=== PATIENT | female | born 1970 | race Caucasian/White ===

== ENCOUNTER 2017-11-24 08:44 | Inpatient (IN) | payer BC, OTHER ==
[2017-11-13 15:59] VITALS: BMI 43.0
--- NOTE | 2017-11-23 14:32 | History and Physical ---
History & Physical Date Nov 23, 2017. Chief Complaint Right ankle/foot pain History of Present Illness The patient is a 47 year old female with complaints of right hindfoot pain that has worsened over the past couple of months. She was treated conservatively with booting and PT but failed all conservative management. She had an MRI that noted PTT tenosynovitis and sinus tarsi syndrome. She is now being set up for surgical tx. Past Medical/Surgical History Medical Problems: (1) Abdominal hysterectomy (2) Asthma (3) Deliveries by (4) Heart murmur (5) Lumpectomy of breast (6) Pneumonia Past surgical hx: , cholecystectomy, hysterectomy, knee, wrist, shoulder, tonsillectomy, endometriosis Allergies Coded Allergies: Ondansetron (Verified Allergy, Severe, ITCHY, REDNESS, ARM SWELLING, ) Aspirin (Verified Allergy, Mild, rash, 11/13/17) TOLERATES ASPIRIN/NSAIDS Caffeine (Verified Allergy, Mild, rash, 11/13/17) Cinnamedrine (Verified Allergy, Mild, rash, 11/13/17) Corticosteroids (Unverified Adverse Reaction, Unknown, FLUSHING, 11/13/17) Home Medications Scheduled Fexofenadine Hcl (Ariana Allergy), 180 MG PO QAM Liraglutide (Victoza), 18 MG SQ QAM Montelukast Sodium (Singulair), 10 MG PO QAM [Allergy Shots], 2 DOSE SQ MONTHLY Scheduled PRN Acetaminophen/Codeine (Tylenol W/Codeine #3), 1 TAB PO Q6H PRN for Pain Physical Examination Skin: warm/dry, no rash Eyes: normal inspection ENT: normal ENT inspection Head: normocephalic, atraumatic Neck: supple, no adenopathy, trachea midline Respiratory/Chest: lungs clear, normal breath sounds, no respiratory distress Cardiovascular: regular rate, rhythm Abdomen / GI: normal bowel sounds, non tender Extremities: + pertinent finding (Right ankle: pes planovalgus. Tender along the PTT and the sinus tarsi. Weak inversion right ankle. ) Neurologic/Psych: no motor/sensory deficits, alert, oriented x 3 Diagnosis Right posterior tibial tendon dysfunction right pes planovalgus deformity Plan of Treatment Recommend a right posterior tibial tendon reconstruction with flexor digitorum longus tendon transfer, medializing calcaneal osteotomy, lateral column lengthening with autograft, Right iliac crest bone graft harvest. All potential risks, benefits, complications, alternatives, and rehab have been discussed with the patient and she wishes to proceed. She will be scheduled for 3.2 with ASA 81 mg BID x 4-6 wks for DVT prophylaxis.
[2017-11-24] VITALS (7 sets, daily range): BP systolic 123–148; BP diastolic 69–99; PULSE 83–103; TEMP 36.4–36.9; O2SAT 94–100; Ht 157.5 cm; Wt 108.2 kg
[~2017-11-24] VITALS: Ht 157.5 cm; Wt 108.2 kg
[~2017-11-24 08:44] MED LIST: ACET-749 PO; ALLERGY SHOTS SQ; BUPIVACAINE 0.25% 30 ML VIAL ONE; CEFAZOLIN 2000MG IV PUSH 15 ML IV SCH; DEXAMETHASONE SOD INJ 4 MG/ML VIAL ONE; EpINEphrine INJ 1MG/ML AMP 1 MG/ML AMP ONE; FEXO1TAB49 PO; LIRA18IN SQ; MONT1TAB3 PO; SCOPOLAMINE 1.5 MG TDSY TD SCH
[2017-11-24] MEDS ORDERED: BACITRACIN 50000 UNIT VIAL ONE (09:25)
[2017-11-24] MEDS ORDERED: BUPIVACAINE 0.5 % 5 MG/1 ML MPF 30ML VIAL ONE (09:25)
[2017-11-24] MEDS ORDERED: BUPIVACAINE/EPINEPHRINE 0.5% MPF 1:200,000 30 ML VIAL ONE (09:25)
[2017-11-24] MEDS ORDERED: THROMBIN FOR SOLN 20000 UNIT KIT ONE (09:26)
[2017-11-24] MEDS ORDERED: GELATIN SPONGE SZ 100 ONE (09:26)
[2017-11-24 09:29] LABS: HEMATOCRIT 41.5 % (37-47); HEMOGLOBIN 14.4 g/dL (12.0-16.0); MEAN CELL VOLUME 88.7 fL (80-100); MEAN CORPUSCULAR HEMOGLOBIN 30.8 pg (25-34); MEAN PLATELET VOLUME 9.3 fL (7.4-10.4); PLATELET COUNT 238 K/uL (130-400); RED CELL DISTRIBUTION WIDTH CV 13.8 % (11.5-14.5); RED CELL DISTRIBUTION WIDTH SD 44.8 fL (36.4-46.3); WHITE BLOOD COUNT 8.17 K/uL (4.8-10.8)
[2017-11-24 09:35] LABS: MEAN CORPUSCULAR HGB CONC 34.7 g/dl (32-36)
[2017-11-24 09:38] LABS: PTT PATIENT 26.4 SECONDS (21.0-31.0)
[2017-11-24 09:50] LABS: CALCIUM 9.3 mg/dl (8.5-10.1); CREATININE 0.84 mg/dl (0.60-1.20)
[2017-11-24] MEDS ORDERED: MIDAZOLAM HCL 1 MG/ML 2ML VIAL ONE (10:49)
[2017-11-24] MEDS ORDERED: FENTANYL CITRATE INJ 50 MCG/1 ML 2 ML VIAL ONE ×2 (10:49→13:34)
--- NOTE | 2017-11-24 11:15 | History & Physical Bridge Note ---
H&P Re-Evaluation Bridge Note: I have examined the patient, reviewed the History & Physical and in the interval since the performance of the History & Physical I have noted the following changes of clinical significance: No changes noted
[2017-11-24] MEDS ORDERED: BUPIVACAINE 0.25% 30 ML VIAL ONE (11:27)
[2017-11-24] MEDS ORDERED: MoRPHine SULFATE 2 MG/ML CARP ONE (12:03)
[2017-11-24] MEDS ORDERED: MoRPHine SULFATE PF 1 MG/ML 10 ML AMP/VIAL ONE (12:05)
[2017-11-24] MEDS ORDERED: FENTANYL CITRATE INJ 50 MCG/1 ML 2 ML VIAL IV PRN (12:30)
[2017-11-24] MEDS ORDERED: PROMETHAZINE HCL INJ 6.25 MG in SODIUM CHLORIDE 0.9% 50ML 50 ML IV PRN (12:30)
[2017-11-24] MEDS ORDERED: ATROPINE SULFATE 0.1 MG/ML 5ML SYR IV PRN (12:30)
[2017-11-24] MEDS ORDERED: EpHEDrine SULFATE INJ 50 MG/ML AMP IV PRN (12:30)
[2017-11-24] MEDS ORDERED: LABETALOL HCL IV 5 MG/ML 20ML IV ONE (13:56)
--- NOTE | 2017-11-24 13:56 | DIAGNOSTIC IMAGING REPORT ---
INTRAOPERATIVE RIGHT FOOT 2 VIEWS CLINICAL HISTORY: Right hindfoot reconstruction COMPARISON STUDY: No previous studies for comparison. FINDINGS: 2 intraoperative fluoroscopic spot images are provided for interpretation. 50 seconds of fluoroscopic time was utilized. There is a cannulated calcaneal screw and talo calcaneal screw present. IMPRESSION: Intraoperative radiograph demonstrating 2 hindfoot screws. Electronically signed by: Baron Minor M.D. 11/24/2017 1:54 PM Dictated Date/Time: 11/24/2017 1:53 PM
--- NOTE | 2017-11-24 14:40 | [facility] Post Operative Brief Note ---
Immediate Operative Summary Operative Date Nov 24, 2017. Pre-Operative Diagnosis Right posterior tibial tendon dysfunction, Right pes planovalgus deformity, Achilles Contracture Post-Operative Diagnosis Right posterior tibial tendon dysfunction, Right pes planovalgus deformity, Achilles Contracture Procedure(s) Performed 1. Right Foot Posterior Tibial Tendon Reconstruction with Flexor Digitorum Longus Transfer 2. Medializing Calcaneal Osteotomy, 3. Lateral Column Lengthening with Autograft, 4. Percutaneous Tendoachilles lengthening 5. [place] Autologous Right Iliac Crest Bone Graft Surgeon Dr. Merlin Isaac Umbrella Tipper Machine Surgeon(s) Juan Sinha PA-C Estimated Blood Loss 25ml Findings Consistent with Post-Op Diagnosis Specimens None per surgeon Drains HV x 1 Anesthesia Type General Regional Complication(s) none Disposition Accompanied Pt To Recover: no Disposition: Recovery Room / PACU
[2017-11-24] MEDS ORDERED: DEXAMETHASONE SOD INJ 4 MG/ML VIAL ONE (15:03)
[2017-11-24] MEDS ORDERED: LIDOCAINE HCL 2% 2 ML VIAL (20MG/ML) ONE (15:03)
[2017-11-24] MEDS ORDERED: PROPOFOL IV EMULSION 10 MG/ML 20 ML VIAL IV ONE (15:03)
[2017-11-24] MEDS ORDERED: NURSING VERBAL MED ORDER ONE ×3 (15:15→22:45)
[2017-11-24] MEDS ORDERED: MEPERIDINE HCL 25 MG/ML CARP ONE (15:15)
[2017-11-24] MEDS ORDERED: DiphenhydrAMINE HCL 50 MG/ML VIAL ONE (15:15)
[2017-11-24] MEDS ORDERED: MAGNESIUM HYDROXIDE SUSP 30 ML UDC PO PRN (15:15)
[2017-11-24] MEDS ORDERED: ALUMINUM/MAGNESIUM/SIMETH (MAALOX MAX) 30 ML UDC PO PRN (15:15)
[2017-11-24] MEDS ORDERED: BISACODYL 10 MG SUPP PR PRN (15:15)
--- NOTE | 2017-11-24 15:35 | Anesthesiology Progress Note ---
Anesthesia Post Op Note Date & Time Nov 24, 2017 at 15:35 Vital Signs Pain Intensity: 0 Vital Signs Past 12 Hours Date Time Temp Pulse Resp B/P (MAP) Pulse Ox O2 Delivery O2 Flow Rate FiO2 11/24/17 09:28 36.6 94 20 138/99 (112) 100 Room Air Notes Mental Status: alert / awake / arousable, participated in evaluation Pt Amnestic to Procedure: Yes Nausea / Vomiting: adequately controlled Pain: adequately controlled Airway Patency, RR, SpO2: stable & adequate BP & HR: stable & adequate Hydration State: stable & adequate Anesthetic Complications: no major complications apparent
[2017-11-24] MEDS: CHECK SCOPOLAMINE PATCH PLACEMENT SCH (16:35)
[2017-11-24] MEDS: OXYCODONE HCL IR 5 MG TAB (IMMEDIATE RELEASE) PO PRN (17:29)
[2017-11-24] MEDS: MoRPHine SULFATE 4 MG/ML 1 ML CARP\\VIAL IV PRN (18:25)
[2017-11-24] MEDS: POTASSIUM CHLORIDE INJ 10 MEQ in SODIUM CHLORIDE 0.9% 1000ML 1,000 ML IV SCH (18:43)
[2017-11-24] MEDS: CEFAZOLIN IV 2,000 MG in SYRINGE 0 ML IV SCH (20:07)
[2017-11-24] MEDS: ACETAMINOPHEN 500 MG TAB PO SCH (21:32)
[2017-11-25] VITALS (7 sets, daily range): BP systolic 117–146; BP diastolic 69–86; PULSE 76–94; TEMP 36.6–36.8; O2SAT 95–99
[2017-11-25] MEDS: CHECK SCOPOLAMINE PATCH PLACEMENT SCH ×4 (00:17→23:43)
[2017-11-25] MEDS: OXYCODONE HCL IR 5 MG TAB (IMMEDIATE RELEASE) PO PRN ×3 (00:27→14:22)
[2017-11-25] MEDS: POTASSIUM CHLORIDE INJ 10 MEQ in SODIUM CHLORIDE 0.9% 1000ML 1,000 ML IV SCH ×3 (04:19→23:46)
[2017-11-25] MEDS: CEFAZOLIN IV 2,000 MG in SYRINGE 0 ML IV SCH (04:26)
[2017-11-25] MEDS: ACETAMINOPHEN 500 MG TAB PO SCH ×3 (05:47→22:26)
--- NOTE | 2017-11-25 06:55 | OPERATIVE REPORT ---
DATE OF OPERATION: 11/24/2017 PREOPERATIVE DIAGNOSES: 1. Right posterior tibial tendon dysfunction grade 2. 2. Painful pes planovalgus deformity. 3. Achilles contracture. 4. Subfibular impingement. POSTOPERATIVE DIAGNOSES: Same. PROCEDURES: 1. Right foot posterior tibial tendon reconstruction with flexor digitorum longus tendon transfer. 2. Medializing calcaneal osteotomy with screw fixation. 3. Lateral column lengthening procedure with application autograft and screw fixation. 4. Percutaneous tendon Achilles lengthening. 5. Right iliac crest autologous bone graft harvesting. SURGEON: Dr. Mrelin Isaac. LOCKSTITCH POCKET SETTER: SHWETHA Becerra, who was present for patient positioning, sterile prep and drape, management of retractors and instruments. He was present through the critical portions of the case including wound closure, application of sterile dressing and transport of the patient to recovery. ANESTHESIA: General LMA with popliteal block. SPECIMENS: None. DRAINS: Hemovac x1. COMPLICATIONS: None. BLOOD LOSS: 25 mL PERTINENT HISTORY: This is a 47-year-old who had persistent ongoing deformity of her right foot over the last 6 months to a year. She attempted and failed conservative management including physical therapy, physician-directed home exercises, anti-inflammatories, rest, shoe wear modification, use of a brace and modification of lifestyle. The patient had radiographs and MRI, which demonstrated insufficiency of her posterior tibial tendon with thickening tenosynovitis, worsening pes planovalgus deformity. Clinically, she had too many toes sign with Achilles contracture and worsening pes planovalgus deformity with abduction of the forefoot and subfibular impingement. The patient was then scheduled for surgery as indicated. All potential risks, benefits, complications, alternatives, rehab, potential for incomplete relief of symptoms, need for further surgery, DVT, PE, , persistent pain, swelling, scarring, weakness, neurovascular injury, wound complications, hardware failure, nonunion, malunion, and bone fracture discussed with the patient. The patient decided to proceed with the procedure as indicated. DESCRIPTION OF PROCEDURE: The patient was taken to the operative suite. The consent was reviewed and surgical site was identified. The patient had undergone a general LMA with popliteal block anesthetic and then transferred to the Operating Room table. Tourniquet was placed high in the right thigh over cast padding. Right iliac crest and right lower extremity were then sterilely prepped and draped in usual fashion. The right lower extremity was then elevated and exsanguinated with Esmarch bandage, tourniquet inflated to 350 mmHg. Next, right foot was held in dorsiflexion. An 11-blade scalpel was used to perform a three part percutaneous tendo Achilles lengthening and then the small stab incisions were then closed with a skin stapler. Next, a 15-blade scalpel was used to make an incision in oblique fashion on the lateral aspect of the right calcaneus. The incision was deepened to subcutaneous tissue. Meticulous hemostasis with electrocautery. Full thickness flaps were developed. Next, periosteum was elevated with small periosteal elevator. Hohmann retractors were placed and a sagittal saw was used to perform the osteotomy in the posterior aspect of the calcaneus. Tuberosity was then shifted medially and then stabilized with a guide pin from the 7.3-mm cannulated screw set under fluoroscopic control. Next, a short thread 7.3-mm cannulated screw of appropriate length was then placed over the guide pin and then used to compress the osteotomy under fluoroscopic control. Next, the guide pin was removed. The wound was irrigated with sterile Normal Saline and the dermis was closed using buried 3-0 Vicryl sutures and the skin was closed using 4-0 Nylon. Next, a 15-blade scalpel incision was made over the anterior process of the calcaneus and lateral calcaneus, the incision deepened through subcutaneous tissue, meticulous hemostasis with electrocautery. The extensor digitorum brevis was identified, incised and then elevated both superiorly and inferiorly. Peroneal tendon sheath was elevated and Hohmann retractors were placed in the sinus tarsi and then the inferior aspect of the calcaneus. A sagittal saw was used to make an osteotomy approximately 1.5 cm proximal to the calcaneal cuboid joint. Smooth osteotomes were placed into the osteotomies to open the osteotomy site and then a cervical lamina linotype worker was placed in the opening. The opening of appropriate width was then measured and the cervical lamina linotype worker was then removed from the osteotomy and a moist lap was placed over the foot. Next, after injection of the right iliac crest with approximately 15 cc of 0.5% Marcaine with Epinephrine a 15-blade scalpel incision was made over the iliac crest approximately 1 cm proximal to the ASIS. This was deepened to subcutaneous tissue with electrocautery down to the level of the fascia. Fascia was incised in line with the skin incision and then the iliac crest was clearly visualized, soft tissue and fascia was elevated medially and laterally. Small Saucedo retractors were placed in the inner and outer table of the iliac crest. It was irrigated with sterile Normal Saline. Appropriate length of bone wedge was measured and marked with electrocautery and then a sagittal saw was used to resect the appropriate width trapezoidal tricortical graft from the pelvis. Next, after irrigation and suction the graft was then placed on the back table and a small amount of cancellous graft was excised from the iliac crest. The wound was then finally irrigated with Sterile Normal Saline. The defect in the iliac crest was then packed with Gelfoam and Thrombin. This was then closed with the fascia overlying the iliac crest with #1 Vicryl sutures. Next, this was injected with 1 cc of Duramorph and 5 cc of 0.5% Marcaine with Epinephrine. The dermis was closed using buried interrupted 2-0 Vicryl sutures and the skin was closed using skin lucho. Approximately 5 more cc of 0.5% Marcaine with Epinephrine was injected. No oozing or bleeding was encountered and a sterile compressive dry dressing was applied overwrapped with an OpSite. Next, the graft was then placed in the lateral osteotomy of the foot to lengthen the lateral column using a cervical lamina linotype worker to span the osteotomy. After the graft was tamped in place with a bone tamp and mallet the cervical lamina linotype worker was removed. Next, the adjacent bone graft obtained from the iliac crest was then packed around the tricortical graft and then the graft was then stabilized with a single fully threaded 4.0 mm small fragment screw placed under lag technique compressing the graft in place. Next, the 2-0 Vicryl suture was used to close the extensor digitorum brevis and the dermis was closed using buried interrupted 3-0 Vicryl. Skin was closed using 4-0 Nylon sutures. Next, a 15-blade scalpel was used to make a long curvilinear incision along the medial aspect of the hind foot overlying the posterior tibial tendon. The incision was deepened to subcutaneous tissue. Meticulous hemostasis achieved with electrocautery. The incision was extended to the first metatarsal head. Next, after incision of the laciniate ligament the flexor retinaculum was encountered. This was incised in line with skin incision overlying the posterior tibial tendon. The posterior tibial tendon was clearly visualized. Tenotomy scissors were then used to complete the release of the flexor retinaculum and the posterior tibial tendon was then elevated sharply with combination of electrocautery and 15-blade scalpel from its insertion on the navicular. The damaged portion of the tendon distally was then resected and then a whip stitch was placed with 0 Ethibond suture in the distal aspect of the posterior tibial tendon. Next, dissection was continued in the mid foot in the interval between the first metatarsal and the abductor hallucis. A Weitlaner retractor was placed in the wound and then after careful dissection the master knot of Surjit was released and the flexor digitorum longus and flexor hallucis longus were clearly visualized distally. Tenodesis was performed with interrupted 0 Ethibond suture with toes held in neutral alignment in line with the metatarsals. Next, a whip stitch was placed in the distal aspect of the FDL tendon and then the FDL was then released distally to allow it to be retracted proximally posterior to the medial malleolus after a small cut was made in the FDL sheath posterior to the medial malleolus. After the tendon was withdrawn posteriorly, the soft tissues were elevated from the medial navicular and a 4.5-mm drill hole was made in the medial navicular. A Hartley suture passer was used to transfer the tendon from the plantar to the dorsal aspect of the navicular. It was then sutured back down to itself using a sharp tendon passer and a Pulvertaft weave technique with #2 fiber wire suture. Several passes were made and then this was then incorporated into the posterior tibial tendon. Next, free needle was used to tie the ends of the posterior tibial tendon and FDL tendon into the adjacent tendons. Sutures were then tied and cut. The wound was irrigated with Sterile Normal Saline. Deep drain was placed, a #10 [place] single Hemovac drain medially and then the flexor sheath was closed using interrupted 2-0 Vicryl sutures. The interval between the first metatarsal and the abductors were closed using interrupted 2-0 Vicryl sutures. The dermis was closed using buried interrupted 3-0 Vicryl suture and skin closed with 4-0 Nylon. A sterile compressive Solo Morales plaster splint was applied and wrapped with an Tino wrap with the foot held in slight equinus and inversion. The tourniquet was released, patient awakened and taken to recovery in stable condition. I attest to the content of the Intraoperative Record and any orders documented therein. Any exceptions are noted below. CHRIST
[2017-11-25 07:55] LABS: CALCIUM 8.6 mg/dl (8.5-10.1); CREATININE 0.79 mg/dl (0.60-1.20)
[2017-11-25] MEDS: LIRAGLUTIDE 18 MG/3 ML INJ SC SCH (09:21)
[2017-11-25] MEDS: MONTELUKAST SOD 10 MG TAB PO SCH (09:21)
[2017-11-25] MEDS: MULTIVITAMIN TAB PO SCH (09:21)
[2017-11-25] MEDS: FEXOFENADINE HCL 180 MG TAB PO SCH (09:21)
--- NOTE | 2017-11-25 11:41 | Orthopedic Progress Note ---
Orthopedic Progress Note Date of Service Nov 25, 2017. Subjective Post OP Day: 1 Reports: feeling well, Denies: chest pain, SOB, nausea / vomiting, light headedness, calf pain Additional Notes: Patient states she has some hip pain. Also she has some numbness in her foot. Objective calves soft nontender, N/V intact (numbness in her foot), capillary refill less than 2 sec., dressing C/D/I, A&O x3, hemovac drainage Date Time Temp Pulse Resp B/P (MAP) Pulse Ox O2 Delivery O2 Flow Rate FiO2 11/25/17 07:45 Room Air 11/25/17 07:40 36.6 76 18 144/73 (96) 95 Room Air 11/25/17 02:47 36.6 76 14 117/76 (90) 95 Room Air 11/25/17 00:00 Room Air 11/24/17 23:11 36.9 83 14 123/79 (94) 95 Room Air 11/24/17 19:35 36.6 97 18 123/74 (90) 94 Room Air 11/24/17 18:45 36.6 103 19 127/69 (88) 98 Room Air Nasal Cannula 11/24/17 18:08 36.6 97 16 143/89 (107) 99 Room Air Nasal Cannula 11/24/17 17:05 36.4 93 18 142/83 (102) 100 Nasal Cannula 2.0 11/24/17 17:02 Nasal Cannula 2.0 11/24/17 16:52 Nasal Cannula 2.0 11/24/17 16:35 36.7 92 16 148/89 (108) 96 Nasal Cannula 11/24/17 16:35 Nasal Cannula 2.0 11/24/17 16:15 95 14 138/86 97 Nasal Cannula 2 11/24/17 16:05 36.6 95 16 143/86 98 Nasal Cannula 2 11/24/17 15:55 88 20 151/85 94 Nasal Cannula 2 11/24/17 15:45 84 15 140/93 94 Nasal Cannula 2 11/24/17 15:35 88 19 143/93 98 Nasal Cannula 2 11/24/17 15:25 90 17 147/98 99 Oxymask 10 11/24/17 15:15 104 25 166/99 100 Oxymask 10 11/24/17 15:06 36.7 101 16 150/101 98 Oxymask 10 Assessment & Plan Assessment: POD#1 1. Right foot posterior tibial tendon reconstruction with flexor digitorum longus tendon transfer. 2. Medializing calcaneal osteotomy with screw fixation. 3. Lateral column lengthening procedure with application autograft and screw fixation. 4. Percutaneous tendon Achilles lengthening. 5. Right iliac crest autologous bone graft harvesting. Plan: Medical Management PT/OT Discharge - home self care when pain well controlled
[2017-11-25] MEDS ORDERED: NURSING VERBAL MED ORDER ONE (19:00)
[2017-11-25] MEDS ORDERED: DiphenhydrAMINE HCL 50 MG/ML VIAL IV ONE (19:15)
[2017-11-25] MEDS: TRAMADOL HCL 50 MG TAB PO PRN (20:48)
[2017-11-26] MEDS: MoRPHine SULFATE 4 MG/ML 1 ML CARP\\VIAL IV PRN ×3 (04:46→17:12)
[2017-11-26] MEDS: ACETAMINOPHEN 500 MG TAB PO SCH ×2 (05:20→15:25)
[2017-11-26 06:34] VITALS: BP 120/79; PULSE 74; TEMP 36.6; O2SAT 100
[2017-11-26 07:28] LABS: CALCIUM 8.3 mg/dl (8.5-10.1); CREATININE 0.81 mg/dl (0.60-1.20); POTASSIUM 3.8 mmol/L (3.5-5.1)
[2017-11-26] MEDS: TRAMADOL HCL 50 MG TAB PO PRN ×2 (07:49→14:43)
[2017-11-26] MEDS: CHECK SCOPOLAMINE PATCH PLACEMENT SCH ×2 (08:14→15:25)
[2017-11-26] MEDS: LIRAGLUTIDE 18 MG/3 ML INJ SC SCH (08:15)
[2017-11-26] MEDS: FEXOFENADINE HCL 180 MG TAB PO SCH (08:16)
[2017-11-26] MEDS: MULTIVITAMIN TAB PO SCH (08:17)
[2017-11-26] MEDS: MONTELUKAST SOD 10 MG TAB PO SCH (08:17)
--- NOTE | 2017-11-26 09:05 | Orthopedic Progress Note ---
Orthopedic Progress Note Date of Service Nov 26, 2017. Subjective Additional Notes: Patient seen sitting in chair, pain well controlled now with PO meds, no acute issues overnight. Itching/rash has resolved. Objective calves soft nontender, N/V intact (numbness in her foot), capillary refill less than 2 sec., dressing C/D/I, A&O x3 Date Time Temp Pulse Resp B/P (MAP) Pulse Ox O2 Delivery O2 Flow Rate FiO2 11/26/17 06:34 36.6 74 14 120/79 (93) 100 Room Air 11/26/17 00:15 Room Air 11/25/17 23:03 36.8 77 16 129/83 (98) 97 Room Air 11/25/17 19:22 36.7 94 18 146/86 (106) 98 Room Air 11/25/17 16:20 99 Room Air 11/25/17 15:19 36.7 83 18 136/69 (91) 99 Room Air 11/25/17 12:32 36.6 83 18 127/84 (98) 99 Room Air Assessment & Plan Assessment: POD#2 1. Right foot posterior tibial tendon reconstruction with flexor digitorum longus tendon transfer. 2. Medializing calcaneal osteotomy with screw fixation. 3. Lateral column lengthening procedure with application autograft and screw fixation. 4. Percutaneous tendon Achilles lengthening. 5. Right iliac crest autologous bone graft harvesting. Plan: Medical Management PT/OT Drain dc'd today NWB RLE Discharge - home self care today
[2017-11-26] MEDS: POTASSIUM CHLORIDE INJ 10 MEQ in SODIUM CHLORIDE 0.9% 1000ML 1,000 ML IV SCH (09:27)
[2017-11-26] MEDS ORDERED: ENOX40IN SQ (09:35)
[2017-11-26] MEDS ORDERED: ULT50X PO (09:35)
[2017-11-26] MEDS ORDERED: ACET-24 PO (09:35)
--- NOTE | 2017-11-26 09:40 | Discharge Instructions ---
Discharge Instructions Date of Service Nov 26, 2017. Admission Reason for Admission: Right Ankle Posterior Tibial Tendon Dysfunction Discharge Discharge Diagnosis / Problem: S/P reconstruction right posterior tibial tendon Discharge Goals Goal(s): Decrease discomfort, Improve function Activity Recommendations Activity Limitations: per Instructions/Follow-up section . Instructions / Follow-Up Instructions / Follow-Up ACTIVITY RECOMMENDATIONS: Limitations: No weight bearing to affected limb at all times. SPECIAL CARE INSTRUCTIONS: * Some drainage onto the dressing is normal and is no cause for alarm. * Some swelling is natural especially after walking. * When resting, keep your foot elevated above the level of your heart. * Call [facility] if you notice: -Increased drainage -Fever over 101 degrees F -Severe constant pain BANDAGE: * Leave bandage/cast in place unless otherwise directed. * Keep bandage/cast dry at all times. FOLLOW UP VISIT WITH DR. ROMAN If appointment is not already scheduled: Please call [facility] after you get home today to schedule a follow-up appointment for [address] Roman at . Current Hospital Diet Patient's current hospital diet: Diabetes Type 2 Diet Discharge Diet Recommended Diet: Diabetes Type 2 Diet Procedures Procedures Performed: Pending Studies Studies pending at discharge: no Medical Emergencies . Who to Call and When: Medical Emergencies: If at any time you feel your situation is an emergency, please call [phone] immediately. . Non-Emergent Contact Non-Emergency issues call your: Surgeon Call Non-Emergent contact if: temperature is above 101.5, your pain is worsening, wound has increased drainage, wound has increased redness . "Provider Documentation" section prepared by Solo Diallo. . VTE Core Measure Inpt VTE Proph given/why not?: Enoxaparin (Lovenox) [place] Drug Monitoring Program Search Results: patient reviewed within database, no issues identified
[2017-11-26 15:18] VITALS: BP 120/76; PULSE 89; TEMP 36.5; O2SAT 100
[2017-11-26] MEDS ORDERED: NURSING VERBAL MED ORDER ONE (17:00)
[2017-11-26 17:54] VITALS: BP 120/76; PULSE 89; TEMP 36.5; O2SAT 100
[2017-11-26] MEDS ORDERED: ENOXAPARIN 40 MG/0.4 ML SYR SQ ONE (18:00)
[2017-11-27] MEDS ORDERED: HYDR2TAB48 PO (23:35)
--- NOTE | 2017-11-28 09:18 | DIAGNOSTIC IMAGING REPORT ---
RIGHT ANKLE 3 VIEWS CLINICAL HISTORY: Postoperative examination. Ankle reconstruction. FINDINGS: 3 portable views of the right ankle are obtained. No prior studies are available for comparison at the time of dictation. The examination is performed through a cast, obscuring fine bony detail. The skeletal structures appear well mineralized. There is osteotomy versus fracture through the calcaneus. 2 cortical lag screws transfix the calcaneus. The orthopedic hardware appears intact. The ankle mortise is intact. A surgical drain is in place. Skin clips are noted posteriorly and there is soft tissue edema. IMPRESSION: Postoperative findings of the calcaneus as above. The orthopedic hardware appears intact. Electronically signed by: Benjamin Boyd M.D. 11/28/2017 9:16 AM Dictated Date/Time: 11/28/2017 9:14 AM
[2017-11-28] MEDS ORDERED: HYDR-5688 PO (16:12)
[2017-11-28] MEDS ORDERED: PROM25TA9 PO (16:18)
== END 2017-11-26 19:07 | disposition home or self-care (01) | DRG 502 ==
LOC: C.ACU 08:44 → C.MSW 09:00 → ENRESERV 15:55 → CANRESERV 15:55 → ENRESERV 16:17
PROVIDERS: ADMIT Orthopaedic Surgery Sports Medicine; ATTEND Orthopaedic Surgery Sports Medicine
PROC: 0LXS0ZZ Transfer Right Ankle Tendon, Open Approach (ICD-10-PCS; principal; 2017-11-24 11:00)
PROC: 0QBL0ZZ Excision of Right Tarsal, Open Approach (ICD-10-PCS; principal; 2017-11-24 11:00)
PROC: 0L8N3ZZ Division of Right Lower Leg Tendon, Percutaneous Approach (ICD-10-PCS; principal; 2017-11-24 11:00)
PROC: 0QB20ZZ Excision of Right Pelvic Bone, Open Approach (ICD-10-PCS; principal; 2017-11-24 11:00)
DX: M76.821 Posterior tibial tendinitis, right leg (principal); M21.41 Flat foot [pes planus] (acquired), right foot; M25.871 Other specified joint disorders, right ankle and foot; M67.01 Short Achilles tendon (acquired), right ankle; J45.909 Unspecified asthma, uncomplicated; Z88.8 Allergy status to other drugs, medicaments and biological substances; Z88.6 Allergy status to analgesic agent

== ENCOUNTER 2017-11-27 20:01 | Emergency (ER) | payer OTHER ==
[~2017-11-27 20:01] MED LIST changes: +ACET-24 PO; -BUPIVACAINE 0.25% 30 ML VIAL ONE; -CEFAZOLIN 2000MG IV PUSH 15 ML IV SCH; -DEXAMETHASONE SOD INJ 4 MG/ML VIAL ONE; +ENOX40IN SQ; -EpINEphrine INJ 1MG/ML AMP 1 MG/ML AMP ONE; -SCOPOLAMINE 1.5 MG TDSY TD SCH; +ULT50X PO
[2017-11-27 20:30] VITALS: TEMP 37.2; Ht 157.5 cm
[2017-11-27] MEDS ORDERED: HYDROmorphone HCL 2 MG TAB PO STA (21:18)
--- NOTE | 2017-11-27 21:28 | EMERGENCY ROOM VISIT NOTE ---
ED Visit Note First contact with patient: 20:36 CHIEF COMPLAINT: Right leg pain HISTORY OF PRESENTING ILLNESS: This is a 47-year-old female who presents to the emergency department with complaint of severe right leg pain. Patient states that she underwent a tendon repair in her right foot and ankle on Monday. She was discharged yesterday and states she had been doing well. She was discharged on tramadol, she states she has been taking 100 mg every 4 hours with no relief of her pain. She states that she was unable to take oxycodone because she had an allergic reaction to this medication while in the hospital. She states that she has been unable to get a hold of her surgeon today, and states "I just could not take the pain anymore." She states the pain is constant, throbbing and aching, better with elevating the leg, worse with having the leg dependent, 10/10. Patient denies any fevers or chills, chest pain, shortness of breath, abdominal pain, nausea or vomiting, urinary symptoms , or rash. She denies any numbness or tingling in the toes, discoloration of the skin. She does note that her toes seem to be more swollen than yesterday. REVIEW OF SYSTEMS: A complete 10 point review of systems was reviewed with the patient with pertinent positives and negatives as per history of present illness. All else were negative. PAST MEDICAL HISTORY: Reviewed in the chart SOCIAL HISTORY: Lives at home. ALLERGIES: Reviewed in the chart. PHYSICAL EXAM: CONSTITUTIONAL: Pleasant and cooperative. No acute distress, but appears to be in significant pain and very uncomfortable. Nontoxic appearing. HEENT: Normocephalic, atraumatic. Pupils equal, round and reactive to light, EOMI. TMs normal. Pharynx normal. NECK: Supple, full active range of motion without discomfort. RESPIRATORY: Clear to auscultation bilaterally with no wheezing, crackles, rhonchi or stridor. Equal expansion bilaterally. CARDIOVASCULAR: Regular rate and rhythm with no murmurs, rubs or gallops. Normal peripheral perfusion. No edema. GASTROINTESTINAL: Soft, nontender, nondistended. No palpable masses or HSM. Bowel sounds present in all quadrants. MUSCULOSKELETAL: The right lower extremity is in a large splint from the toes to the knee. Able to move the toes. Normal sensation to light touch of the right toes. Capillary refill is less than 3 seconds. INTEGUMENTARY: No rash or other significant dermatologic conditions noted. NEUROLOGIC: Alert and oriented X 4 with normal affect. Normal speech. ED COURSE AND MEDICAL DECISION MAKING: CC: Patient presenting with complaint of right leg pain DIFFERENTIAL DIAGNOSIS: Includes, but not limited to postoperative pain, postoperative wound infection, compartment syndrome, among others. MEDICATION RECONCILIATION: I attest that I have personally reviewed the patient 's current medication list. INITIAL VITAL SIGNS REVIEW: I reviewed the patient's initial vital signs and interpret them as follows: T: Afebrile; BP: Hypertensive; HR: Within normal limits; RR: Within normal limits; Pulse Ox: Within normal limits on room air. Blood pressure screening: The patient was found to have an elevated blood pressure, which was felt to be situational. SUMMARY: Patient was evaluated at bedside, history and physical exam performed. Patient is alert and oriented, in no acute distress but does appear to be in a lot of pain, sitting in a wheelchair. Patient was helped to the stretcher for evaluation. She appears to be neurovascularly intact of the distal toes. Patient discussed on the phone with Dr. Lee, orthopedics, who stated okay to remove the splint for evaluation. He recommended PO Dilaudid for pain, given concern for oxycodone allergy, and stated 1 dose of Toradol would be okay. I did take down the patient's splint enough to evaluate her wounds. No wound dehiscence noted. No purulent discharge or erythema to suggest infection. The calf compartments are soft and without pain to palpation. Patient was given oral Dilaudid 2 mg. On reassessment an hour later she was still in significant pain. Patient was therefore given 60 mg IM Toradol and 8 mg IM morphine. Patient reassessed multiple times throughout ED stay, her pain has been brought to a reasonable level after the above medications, currently rating as 4/10. Her splint was resecured with an Tino bandage by nursing staff under my supervision, patient remained neurovascularly intact afterward. Patient was updated on all results and plan for discharge, which she was encouraged to follow closely with her orthopedic surgeon regarding ongoing pain management. Patient was also given strict return precautions should her symptoms worsen, she verbalized understanding. Patient was discharged home in stable condition and ambulatory. Problem List Medical Problems: (1) Abdominal hysterectomy Status: Resolved (2) Asthma Status: Chronic (3) Deliveries by Status: Resolved (4) Heart murmur Status: Chronic (5) Lumpectomy of breast Status: Resolved (6) Pneumonia Status: Resolved Current/Historical Medications Scheduled Acetaminophen (Sb Non-Aspirin Extra Stre), 1,000 MG PO Q8 Enoxaparin (Lovenox), 0.4 ML SQ DAILY Fexofenadine Hcl (Ariana Allergy), 180 MG PO QAM Liraglutide (Victoza), 18 MG SQ QAM Montelukast Sodium (Singulair), 10 MG PO QAM [Allergy Shots], 2 DOSE SQ MONTHLY Scheduled PRN Acetaminophen/Codeine (Tylenol W/Codeine #3), 1 TAB PO Q6H PRN for Pain Hydromorphone Hcl (Dilaudid), 1 TAB PO Q6H PRN for Severe Pain Tramadol HCl (Tramadol HCl), 50-100 MG PO Q4H PRN for Pain Allergies Coded Allergies: Ondansetron (Verified Allergy, Severe, ITCHY, REDNESS, ARM SWELLING, ) Aspirin (Verified Allergy, Mild, rash, 11/27/17) TOLERATES ASPIRIN/NSAIDS Caffeine (Verified Allergy, Mild, rash, 11/27/17) Cinnamedrine (Verified Allergy, Mild, rash, 11/27/17) Corticosteroids (Unverified Adverse Reaction, Unknown, FLUSHING, 11/27/17) Vital Signs Date Time Temp Pulse Resp B/P (MAP) Pulse Ox O2 Delivery O2 Flow Rate FiO2 11/28/17 00:11 80 22 136/99 99 11/27/17 22:39 84 22 137/102 98 Room Air 11/27/17 20:30 37.2 91 18 149/75 98 Room Air Medications Administered Medications (Trade) Dose Ordered Sig/Avinash Route Start Time Stop Time Status Last Admin Dose Admin Hydromorphone HCl (Dilaudid Tab) 2 mg NOW STAT PO 11/27/17 21:18 11/27/17 21:19 DC 11/27/17 21:31 2 MG Ketorolac Tromethamine (Toradol Inj) 60 mg NOW STAT IM 11/27/17 22:22 11/27/17 22:23 DC 11/27/17 22:35 60 MG Morphine Sulfate (MoRPHine SULFATE INJ) 8 mg NOW STAT IM 11/27/17 22:24 11/27/17 22:25 DC 11/27/17 22:36 8 MG Hydromorphone HCl (Dilaudid Tab) 2 mg ONE PRN PO 11/27/17 23:45 11/28/17 00:15 DC 11/28/17 00:07 2 MG Hydromorphone HCl (Dilaudid Tab) 2 mg ONE PRN PO 11/27/17 23:45 11/28/17 00:15 DC 11/28/17 00:08 2 MG Departure Information Impression Primary Impression: Acute postoperative pain of right foot Dispostion Home / Self-Care Condition GOOD Prescriptions Hydromorphone Hcl (DILAUDID) 2 Mg Tab 1 TAB PO Q6H Y for Severe Pain for 3 Days, #12 TAB Prov: Christelle Lopez CRNP 11/27/17 Referrals No Doctor, Assigned (PCP) Patient Instructions ED Splint Care [facility] Additional Instructions You have been evaluated and treated in the emergency department for your postoperative right foot pain. You have been prescribed Dilaudid (hydromorphone) 2 mg tablets, take 1 tablet every 6 hours as needed for SEVERE pain. This is a narcotic, do not drive, operate machinery, or drink alcohol while taking this medication. You should also take Tylenol 1000 mg every 8 hours to help treat the pain. Do not take more than 3000 mg in 24 hours. Keep your foot elevated above the level of your heart as much as possible to help reduce swelling and pain. You may apply ice to the area to help reduce pain and swelling as well. Call the orthopedic office tomorrow to discuss ongoing pain management and medication refills. Keep all follow-up appointments. Please return to the emergency department for worsening symptoms, including severe pain that is not relieved with pain medication, discolored/cold/numb toes , or any other concerns.
[2017-11-27] MEDS ORDERED: KETOROLAC TROMETHAMINE 60 MG/2 ML VIAL IM STA (22:22)
[2017-11-27] MEDS ORDERED: MoRPHine SULFATE 10 MG/ML CARP/VIAL IM STA (22:24)
[2017-11-27] MEDS ORDERED: HYDR2TAB48 PO ×2 (23:35)
[2017-11-27] MEDS ORDERED: HYDROmorphone HCL 2 MG TAB PO PRN ×2 (23:45)
[2017-11-27] MEDS ORDERED: EMPTY 8 DRAM VIAL ONE (23:56)
[2017-11-28 00:11] VITALS: BP 136/99; PULSE 80; O2SAT 99
[2017-11-28] MEDS ORDERED: HYDR-5688 PO ×2 (16:12)
[2017-11-28] MEDS ORDERED: PROM25TA9 PO ×2 (16:18)
== END 2017-11-28 00:12 | disposition home or self-care (01) ==
LOC: C.EDB 20:02 → C.EDD 11-28 00:12
DX: M79.671 Pain in right foot (principal); G89.18 Other acute postprocedural pain; J45.909 Unspecified asthma, uncomplicated; R01.1 Cardiac murmur, unspecified; Z79.02 Long term (current) use of antithrombotics/antiplatelets; Z79.899 Other long term (current) drug therapy; Z88.8 Allergy status to other drugs, medicaments and biological substances

== ENCOUNTER 2017-11-28 01:04 | Observation (INO) | payer OTHER ==
[~2017-11-28] VITALS: Ht 157.5 cm; Wt 113.1 kg
[~2017-11-28 01:04] MED LIST changes: +HYDR2TAB48 PO
[2017-11-28] MEDS ORDERED: EPINEPHRINE ADULT AUTO-INJECT 0.3 MG SYR IM STA (01:10)
[2017-11-28] MEDS ORDERED: METHYLPREDNISOLONE 125 MG VIAL IV STA (01:10)
[2017-11-28] MEDS ORDERED: ONDANSETRON INJ 2 MG/ML 2 ML VIAL IV STA (01:10)
[2017-11-28] MEDS ORDERED: FAMOTIDINE 20MG/5ML IV PUSH IV STA (01:10)
[2017-11-28] MEDS ORDERED: EpINEphrine INJ 1MG/ML AMP 1 MG/ML AMP ONE (01:10)
[2017-11-28] MEDS ORDERED: DiphenhydrAMINE HCL 50 MG/ML VIAL IV STA (01:13)
[2017-11-28] MEDS ORDERED: FENTANYL CITRATE INJ 50 MCG/1 ML 2 ML VIAL IV STA (01:32)
[2017-11-28] MEDS ORDERED: SODIUM CHLORIDE 0.9% 1000ML 1,000 ML IV STA (01:32)
[2017-11-28] MEDS ORDERED: ONDANSETRON INJ 2 MG/ML 2 ML VIAL IV PRN (02:00)
[2017-11-28] MEDS ORDERED: MoRPHine SULFATE 4 MG/ML 1 ML CARP\\VIAL IV PRN (02:15)
[2017-11-28] MEDS ORDERED: DiphenhydrAMINE INJ 50 MG in SYRINGE 0 ML IV PRN (02:15)
--- NOTE | 2017-11-28 03:08 | EMERGENCY ROOM VISIT NOTE ---
History First contact with patient: :10 Chief Complaint: ALLERGIC REACTION Stated Complaint: ALLERGIC REACTION Nursing Triage Summary: Patient was just seen in the ER, received Toradol, Morphine and Dilaudid. Now with allergic reaction. Skin red, c/o lip swelling itchiness. History of Present Illness The patient is a 47 year old female who presents to the Emergency Room with complaints of facial and lip swelling with throat discomfort and difficulty breathing for the past half hour who was just discharged from our facility after receiving Toradol morphine and Dilaudid. Patient states she has had morphine before without issue. Patient states aspirin and Midol make her face itch and swell. Patient has never had Dilaudid. No other new food soaps or detergents. Patient states she feels like it is difficult to swallow and talk. She has not taken anything for the allergic reaction. Patient denies chest pain, abdominal pain, feeling of impending doom. Patient states when she takes steroids she gets an upset stomach. Patient states she can take Zofran but it sometimes does not work. Review of Systems An 10 system review of systems was completed with positives and pertinent negatives listed in the HPI. Past Medical/Surgical History Medical Problems: (1) Abdominal hysterectomy (2) Asthma (3) Deliveries by (4) Heart murmur (5) Intractable pain (6) Lumpectomy of breast (7) Pneumonia (8) Right posterior tibial tendon dysfunction, Right pes planovalgus Social History Smoking Status: Never Smoker Alcohol Use: none Marital Status: Occupation Status: unemployed Current/Historical Medications Scheduled Acetaminophen (Sb Non-Aspirin Extra Stre), 1,000 MG PO Q8 Enoxaparin (Lovenox), 0.4 ML SQ DAILY Fexofenadine Hcl (Ariana Allergy), 180 MG PO QAM Liraglutide (Victoza), 18 MG SQ QAM Montelukast Sodium (Singulair), 10 MG PO QAM [Allergy Shots], 2 DOSE SQ MONTHLY Scheduled PRN Acetaminophen/Codeine (Tylenol W/Codeine #3), 1 TAB PO Q6H PRN for Pain Hydromorphone Hcl (Dilaudid), 1 TAB PO Q6H PRN for Severe Pain Tramadol HCl (Tramadol HCl), 50-100 MG PO Q4H PRN for Pain Physical Exam Vital Signs Date Time Temp Pulse Resp B/P (MAP) Pulse Ox O2 Delivery O2 Flow Rate FiO2 11/28/17 03:10 82 18 98 11/28/17 03:09 86 18 130/71 Room Air 11/28/17 02:43 93 18 122/78 97 Nasal Cannula 2.0 11/28/17 02:15 85 18 142/81 94 Nasal Cannula 2.0 11/28/17 02:01 96 18 141/75 92 Room Air 11/28/17 01:36 92 18 136/86 96 Room Air 11/28/17 01:30 93 20 136/86 96 Room Air 11/28/17 01:27 94 20 127/81 90 Room Air 11/28/17 01:16 Room Air 11/28/17 01:12 123 11/28/17 01:10 Room Air 11/28/17 01:10 Room Air 11/28/17 01:09 130 26 124/45 92 Room Air 11/28/17 01:07 125 24 124/45 92 Room Air Physical Exam VITALS: Vitals are noted on the nurse's note and reviewed by myself. Vital signs tachycardic. GENERAL: White female erythematous with facial swelling lip swelling having difficulty speaking in acute distress SKIN: Diffuse erythema that is blanchable most consistent with allergic reaction , the skin was without rashes, or bruising. There is no tenting of the skin. Capillary reflex less than 2 seconds. HEAD: Normocephalic atraumatic. EARS: External auditory canals clear, tympanic membranes pearly rosario without erythema or effusion bilaterally. EYES: Pupils equal round and reactive to light and accommodation. Conjunctivae without injection, sclerae without icterus. Extraocular movements intact. NOSE: Patent, turbinates without inflammation or discharge. No sinus tenderness. MOUTH: Mucous membranes moist. Pharynx without erythema or exudate. Uvula midline. Airway patent. Tongue does not deviate. Lips are edematous without tongue swelling NECK: Supple without nuchal rigidity. No lymphadenopathy. No thyromegaly. Cervical spine is nontender. No JVD. HEART: Tachycardic rate and rhythm without murmurs gallops or rubs. LUNGS: Clear to auscultation bilaterally without wheezes, rales or rhonchi. No retractions or accessory muscle use. ABDOMEN: Positive bowel sounds x 4. Normal tympanic percussion. Soft, nontender, without masses or organomegaly. Huang sign negative. No guarding or rebound tenderness. No CVA tenderness MUSCULOSKELETAL: No muscle atrophy, erythema, or edema noted. Right lower leg incisional site intact without signs of infection. Pedal pulses +2 equal and present bilaterally NEURO: Patient was alert and oriented to person place and time. Normal sensation to light and sharp touch. No focal neurological deficits. Medical Decision & Procedures Laboratory Results Test 11/28/17 02:35 Medications Administered Medications (Trade) Dose Ordered Sig/Avinash Route Start Time Stop Time Status Last Admin Dose Admin Epinephrine HCl (EpINEphrine INJ 1MG/ML AMP/VIAL) 1 mg STK-MED ONCE .ROUTE 11/28/17 01:10 11/28/17 01:11 DC 11/28/17 01:12 0.3 MG Methylprednisolone Sodium Succinate (Solu-Medrol IV) 125 mg NOW STAT IV 11/28/17 01:10 11/28/17 01:12 DC 11/28/17 01:25 125 MG Famotidine (Pepcid 20mg Iv Push) 20 mg ONE STAT IV 11/28/17 01:10 11/28/17 01:12 DC 11/28/17 01:24 20 MG Ondansetron HCl (Zofran Inj) 4 mg NOW STAT IV 11/28/17 01:10 11/28/17 02:04 DC 11/28/17 01:24 4 MG Diphenhydramine HCl (Benadryl Inj) 50 mg NOW STAT IV 11/28/17 01:13 11/28/17 01:15 DC 11/28/17 01:25 50 MG Sodium Chloride 1,000 ml @ 999 mls/hr Q1H1M STAT IV 11/28/17 01:32 11/28/17 02:32 DC 11/28/17 01:25 999 MLS/HR Fentanyl Citrate (Fentanyl Inj) 100 mcg NOW STAT IV 11/28/17 01:32 11/28/17 01:33 DC 11/28/17 01:59 100 MCG ED Course Prior records/ancillary studies reviewed. Triage Nursing notes reviewed. Additional history obtained from family The patient's history was concerning for possible allergic reaction. Differential diagnosis: Etiologies such as allergic reaction, anaphylaxis, urticaria, Barfield-Maco syndrome, toxic epidermal necrolysis, erythema multiforme, cellulitis, as well as others were entertained. Physical examination: As above. ER treatment provided: Continuous cardiac monitoring Benadryl 50 mg IV Pepcid 20 mg IV Solu-medrol 125mg IV IV fluids, patient states she can take Zofran. EpiPen IM On reassessment the patient felt better. Diagnostic interpretation by me: Deferred Splint was removed for evaluation of right ankle that was causing her pain from the recent surgery. There is no signs of infection or compartment syndrome or ischemic leg. Patient was then resplinted and neurovascular status was rechecked after placement and is intact. It appears the patient had an anaphylactic reaction. Patient was having airway compromise so she was immediately given epinephrine. Patient felt much better within minutes. She is able to speak again without difficulties. Patient was given 3 medicines a few hours ago. I am unsure exactly what she is allergic to. Her most severe action was to Midol in the past with facial swelling and redness with itching. She has not had Dilaudid in the past. She was still in severe amount of pain. Her anaphylaxis had resolved after being medicated as above. She was given fentanyl without difficulties. Patient states she has had Zofran in the past and sometimes it does not help out with the nausea and vomiting but does not cause any severe reactions.This is given to her as she was given multiple other meds that were sedating in nature. Patient had no problems with this medicine. Patient stated that steroid sometimes gives her an upset stomach. No other issues with steroids. Consultation: Orthopedics was consulted, Dr Lee, and will admit the patient. Patient was still in severe amount of pain status post surgery last week by Dr. Isaac. She will be evaluated and admitted to orthopedic services. Patient had no signs of infection on clinical exam. She was neurovascularly and neurologically intact. By the evaluation outlined above emergent etiologies such as recurring anaphylaxis, anaphylatic shock, airway compromise, Barfield-Maco syndrome, toxic epidermal necrolysis, erythema multiforme, infectious etiologies, as well as others were deemed relatively unlikely. The pt informed about the findings as listed above. All questions were answered and pleased with the treatment. Case reviewed with my attending The chart was completed utilizing [employer] voice recognition software. Grammatical errors, random word insertions, pronoun errors, and incomplete sentences are an occassional consequence of this system due to software limitations, ambient noise, and hardware issues. Any formal questions or concerns about the content, text, or information contained within the body of this dictation should be directly addressed to the physician hospital medical assistant for clarification. Medical Decision as above Medication Reconcilliation Current Medication List: was personally reviewed by me Blood Pressure Screening Patient's blood pressure: Normal blood pressure Impression Primary Impression: Anaphylaxis Additional Impression: Postoperative pain of extremity Critical Care I have personally spent greater than 30 minutes of critical care time in the direct management of this patient. This includes bedside care, interpretation of diagnostic studies, and testing, discussion with consultants, patient, and family members, and other required patient management activities. This 30 minutes is in excess of all separately billable procedures. Departure Information Dispostion Being Evaluated By Surgeon Condition FAIR Referrals No Doctor, Assigned (PCP) Patient Instructions [facility] Problem Qualifiers Primary Impression: Anaphylaxis Encounter type: initial encounter Qualified Codes: T78.2XXA - Anaphylactic shock, unspecified, initial encounter
[2017-11-28 03:30] VITALS: BP 140/84; PULSE 91; TEMP 36.5; O2SAT 97; Ht 157.5 cm; Wt 113.1 kg
[2017-11-28 03:33] LABS: HEMATOCRIT 37.1 % (37-47); HEMOGLOBIN 12.9 g/dL (12.0-16.0); MEAN CELL VOLUME 88.5 fL (80-100); MEAN CORPUSCULAR HEMOGLOBIN 30.8 pg (25-34); MEAN CORPUSCULAR HGB CONC 34.8 g/dl (32-36); MEAN PLATELET VOLUME 8.9 fL (7.4-10.4); PLATELET COUNT 247 K/uL (130-400); RED CELL DISTRIBUTION WIDTH SD 45.2 fL (36.4-46.3); WHITE BLOOD COUNT 14.53 K/uL (4.8-10.8)
[2017-11-28 03:35] VITALS: BP 140/84; PULSE 91; TEMP 36.5; O2SAT 97
[2017-11-28 03:58] LABS: CALCIUM 8.3 mg/dl (8.5-10.1); CREATININE 0.86 mg/dl (0.60-1.20); POTASSIUM 3.5 mmol/L (3.5-5.1)
[2017-11-28] MEDS ORDERED: DiphenhydrAMINE HCL 50 MG/ML VIAL IV PRN (04:00)
[2017-11-28] MEDS ORDERED: IV FLUIDS COMPLETED PRN (04:45)
[2017-11-28 07:24] VITALS: BP 123/83; PULSE 88; TEMP 36.8; O2SAT 94
[2017-11-28] MEDS ORDERED: [UNRECOGNIZED DRUG - REMARK] SQ SCH (08:15)
--- NOTE | 2017-11-28 08:47 | History and Physical ---
History & Physical Date Nov 28, 2017. Chief Complaint Right ankle/foot pain History of Present Illness The patient is a 47 year old female with complaints of pain in the right ankle and foot pain that isn't controlled with her pain meds that she was discharged with on 11.26.17. She was given Morphine, Dilaudid, and Toradol in the ER and discharged home with Ultram. However, she returned with flushing in her face. There is uncertainty to which med may have caused the reaction. However, her pain wasn't controlled when she came back in. She was admitted by Dr. Lee for pain control. Past Medical/Surgical History Medical Problems: (1) Abdominal hysterectomy (2) Asthma (3) Deliveries by (4) Heart murmur (5) Intractable pain (6) Lumpectomy of breast (7) Pneumonia (8) Right posterior tibial tendon dysfunction, Right pes planovalgus Allergies Coded Allergies: Aspirin (Verified Allergy, Mild, rash, 11/27/17) TOLERATES ASPIRIN/NSAIDS Caffeine (Verified Allergy, Mild, rash, 11/27/17) Cinnamedrine (Verified Allergy, Mild, rash, 11/27/17) Ondansetron (Verified Allergy, Mild, vomiting , 11/28/17) Corticosteroids (Unverified Adverse Reaction, Unknown, FLUSHING, 11/27/17) Home Medications Scheduled Acetaminophen (Sb Non-Aspirin Extra Stre), 1,000 MG PO Q8 Enoxaparin (Lovenox), 0.4 ML SQ DAILY Fexofenadine Hcl (Ariana Allergy), 180 MG PO QAM Liraglutide (Victoza), 18 MG SQ QAM Montelukast Sodium (Singulair), 10 MG PO QAM [Allergy Shots], 2 DOSE SQ MONTHLY Scheduled PRN Acetaminophen/Codeine (Tylenol W/Codeine #3), 1 TAB PO Q6H PRN for Pain Hydrocodone/Acetaminophen 5MG/325MG ([place] 5MG/325MG), 1-2 TABLET PO Q4 PRN for Pain Hydromorphone Hcl (Dilaudid), 1 TAB PO Q6H PRN for Severe Pain Tramadol HCl (Tramadol HCl), 50-100 MG PO Q4H PRN for Pain Physical Examination Skin: warm/dry Eyes: normal inspection ENT: normal ENT inspection Head: normocephalic, atraumatic Neck: supple, no adenopathy, trachea midline Respiratory/Chest: lungs clear, normal breath sounds, no respiratory distress Cardiovascular: regular rate, rhythm Abdomen / GI: normal bowel sounds, non tender Extremities: + pertinent finding (RLE: Splint clean, dry, and intact. Toes are mobile. ) Neurologic/Psych: no motor/sensory deficits, alert, oriented x 3 Addiitonal Comments: Patient lying comfortably in bed this AM during visit. Long discussion of pain meds and home treatments. Diagnosis 4 days s/p right PTT reconstruction with FDL tendon transfer, MCO, LCL with autograft, right ICBG harvest with uncontrolled pain. Plan of Treatment Will continue IV morphine but try [place] while she still in inpatient. If [place] works for the patient, will d/c home later today. Discussed pain control with Dr. Lee who saw the patient earlier today. May consider Fentanyl patch if pain remains uncontrolled. Will check back with patient later today to see how pain control is and for probable d/c. Addendum: Patient seen this afternoon and seems to be doing well. Lying comfortably in bed. Meds reviewed and no IV meds throughout the day. 1 dose of [place] was ok with the pain but she did have some face and chest flushing ~4 hours after the dose. Plan for d/c today on [place]. If no flushing happens again or is intolerable, will transition to Tramadol which she has at home. She was instructed to call the office if she has symptoms at home.
[2017-11-28] MEDS: VICTOZA - ORDER AWAITING ACTION SCH ×2 (08:54→16:00)
[2017-11-28] MEDS ORDERED: ENOXAPARIN 40 MG/0.4 ML SYR SQ SCH ×2 (09:00)
[2017-11-28] MEDS ORDERED: FEXOFENADINE HCL 180 MG TAB PO SCH (09:00)
[2017-11-28] MEDS: HYDROCODONE/ACETAMIN 5/325MG TAB PO PRN ×2 (10:02→16:20)
[2017-11-28 14:59] VITALS: BP 148/81; PULSE 127; TEMP 36.8; O2SAT 95
[2017-11-28] MEDS ORDERED: HYDR-5688 PO ×2 (16:12)
--- NOTE | 2017-11-28 16:13 | Discharge Instructions ---
Discharge Instructions Date of Service Nov 28, 2017. Admission Reason for Admission: Intractable Pain Discharge Discharge Diagnosis / Problem: uncontrolled pain, possible reaction to pain meds Discharge Goals Goal(s): Decrease discomfort Activity Recommendations Activity Limitations: per Instructions/Follow-up section . Instructions / Follow-Up Instructions / Follow-Up ACTIVITY RECOMMENDATIONS: Limitations: No weight bearing to affected limb at all times. SPECIAL CARE INSTRUCTIONS: * Some drainage onto the dressing is normal and is no cause for alarm. * Some swelling is natural especially after walking. * When resting, keep your foot elevated above the level of your heart. * Call [facility] if you notice: -Increased drainage -Fever over 101 degrees F -Severe constant pain BANDAGE: * Leave bandage/cast in place unless otherwise directed. * Keep bandage/cast dry at all times. FOLLOW UP VISIT WITH DR. ROMAN If appointment is not already scheduled: Please call [facility] after you get home today to schedule a follow-up appointment for [address] Roman at . Current Hospital Diet Patient's current hospital diet: Regular Diet Discharge Diet Recommended Diet: Regular Diet Pending Studies Studies pending at discharge: no Medical Emergencies . Who to Call and When: Medical Emergencies: If at any time you feel your situation is an emergency, please call 911 immediately. . Non-Emergent Contact Non-Emergency issues call your: Surgeon Call Non-Emergent contact if: temperature is above 101, your pain is not controlled, your pain is worsening . "Provider Documentation" section prepared by Adonay Parks. . VTE Core Measure Inpt VTE Proph given/why not?: Enoxaparin (Lovenox)SQ
[2017-11-28] MEDS ORDERED: PROM25TA9 PO ×2 (16:18)
[2017-11-28 16:24] VITALS: BP 148/81; PULSE 127; TEMP 36.8; O2SAT 95
[2017-11-28] MEDS ORDERED: PROMETHAZINE HCL 25 MG TAB PO PRN (16:30)
[2017-11-28] MEDS ORDERED: MONTELUKAST SOD 10 MG TAB PO SCH (21:00)
== END 2017-11-28 18:00 | disposition home or self-care (01) ==
LOC: C.EDB 01:05 → C.MSW 02:04 → ENRESERV 02:16
PROVIDERS: ADMIT Orthopaedic Surgery; ATTEND Orthopaedic Surgery
DX: G89.18 Other acute postprocedural pain (principal); T78.2XXA Anaphylactic shock, unspecified, initial encounter; X58.XXXA Exposure to other specified factors, initial encounter; R01.1 Cardiac murmur, unspecified; J45.909 Unspecified asthma, uncomplicated; Z79.899 Other long term (current) drug therapy; Z88.5 Allergy status to narcotic agent; Z88.8 Allergy status to other drugs, medicaments and biological substances

== ENCOUNTER → 2018-01-03 | Outpatient (CLI) | payer OTHER ==
[~2018-01-03] MED LIST changes: -ACET-24 PO; -ACET-749 PO; -ENOX40IN SQ; +HYDR-5688 PO; -HYDR2TAB48 PO; +PROM25TA9 PO
--- NOTE | 2018-01-03 16:45 | DIAGNOSTIC IMAGING REPORT ---
R VENOUS DOPP LOWER EXT UNILAT HISTORY: 47 years-old Female M76.821 acute right leg swelling COMPARISON: None available TECHNIQUE: Multiple real-time sonographic images of the right lower extremity deep venous structures were obtained assessing grayscale appearance, color and spectral flow FINDINGS: There is normal compressibility, phasicity, flow and augmentation of the right lower extremity deep venous structures. IMPRESSION: No sonographic evidence of deep venous thrombosis. The above report was generated using voice recognition software. It may contain grammatical, syntax or spelling errors. Electronically signed by: Herve Hinton M.D. 01/03/2018 4:43 PM Dictated Date/Time: 01/03/2018 4:42 PM
== END | disposition home or self-care (01) ==
LOC: C.ULTR 15:43
PROVIDERS: ATTEND Orthopaedic Surgery Sports Medicine
DX: M76.821 Posterior tibial tendinitis, right leg (principal)